=== PATIENT | female | born 1965 | race Caucasian/White ===

== ENCOUNTER 2017-03-25 14:20 | Emergency (ER) | payer BC ==
[~2017-03-25] VITALS: Ht 180.3 cm; Wt 84.1 kg
[~2017-03-25 14:20] MED LIST: AMBIEN 10MG10 MG PO; CARAFATE 1GM1 G PO; NORCO 325 MG-51 TAB PO; PRILOSEC10 MG PO; PRISTIQ 50 MG T50 MG PO; TYLENOL 500MG500 MG PO; ZOFRAN 4MG T4 MG/TAB PO; ZOFRAN ODT4 MG PO
[2017-03-25 14:28] VITALS: TEMP 98.6
[2017-03-25 15:31] LABS: BASO % 0.3 % (0.0-2.0); EOS # 0.1 (0.0-0.7); EOS % 1.1 % (0-4.0); GRAN # 4.1 (1.4-6.5); GRAN % 61.4 % (42.2-75.2); HEMATOCRIT 42.6 % (37.0-47.0); HEMOGLOBIN 14.4 g/dl (12.5-16.0); LYMPH % 30.5 % (20.0-51.0); MEAN CELL VOLUME 95 fl (80.0-100.0); MEAN CORPUSCULAR HEMOGLOBIN 32 pg (27.0-31.0); MEAN CORPUSCULAR HGB CONC 34 g/dl (33.0-37.0); MEAN PLATELET VOLUME 9.8 fl (7.4-10.4); MONO # 0.4 (0.1-0.6); MONO % 6.5 % (1.7-9.3); PLATELET COUNT 250 K/mm3 (130-400); REDCELL DISTRIBUTION WIDTH-CV 11.7 % (11.5-14.5); WHITE BLOOD COUNT 6.6 K/mm3 (4.8-10.8)
[2017-03-25] MEDS ORDERED: NORCO 325 MG-101 TAB PO (15:37)
[2017-03-25] MEDS ORDERED: VYVANSE50 MG PO (15:37)
[2017-03-25] MEDS ORDERED: AMBIEN CR 12.12.5 MG PO (15:38)
[2017-03-25] MEDS ORDERED: PRISTIQ100 MG PO (15:38)
[2017-03-25 15:45] LABS: ADJUSTED CALCIUM 8.8 mg/dL (8.4-10.2); BILIRUBIN,TOTAL 0.4 mg/dL (0.0-1.0); CALCIUM 8.8 mg/dL (8.4-10.2); CREATININE, serum 0.54 mg/dL (0.52-1.25); POTASSIUM 3.9 mmol/L (3.4-5.0); TOTAL PROTEIN 6.9 gm/dL (6.4-8.2)
[2017-03-25] MEDS ORDERED: CARAFATE 1GM1 G PO (17:07)
[2017-03-25] MEDS ORDERED: NORCO 325 MG-51 TAB PO (17:07)
[2017-03-25] MEDS ORDERED: ZOFRAN ODT4 MG PO (17:07)
[2017-03-25 17:30] VITALS: BP 147/92; PULSE 96
== END 2017-03-25 17:50 | disposition home or self-care (01) ==
LOC: COL.ER 14:20
PROVIDERS: Emergency Medicine
DX: R10.13 Epigastric pain (principal); R11.2 Nausea with vomiting, unspecified; K21.9 Gastro-esophageal reflux disease without esophagitis; K27.9 Peptic ulcer, site unspecified, unspecified as acute or chronic, without hemorrhage or perforation; F32.9 Major depressive disorder, single episode, unspecified; Z98.890 Other specified postprocedural states
CPT/HCPCS: C9113; J1200; J2270; J2405; J7030

== ENCOUNTER 2017-03-26 11:27 | Day surgery (SDC) | payer BC ==
[~2017-03-26] VITALS: Ht 180.3 cm; Wt 86.5 kg
[~2017-03-26 11:27] MED LIST changes: +AMBIEN CR 12.12.5 MG PO; +NORCO 325 MG-101 TAB PO; +PRISTIQ100 MG PO; +VYVANSE50 MG PO
[2017-03-26 12:32] VITALS: BP 152/94; PULSE 84; TEMP 97.7
[2017-03-26 13:20] VITALS: BP 143/94; PULSE 83; TEMP 97.8
[2017-03-26 13:30] VITALS: BP 129/80; PULSE 76
[2017-03-26 13:45] VITALS: BP 123/86; PULSE 70
[2017-03-26 14:00] VITALS: BP 130/79; PULSE 74
== END 2017-03-26 16:42 | disposition home or self-care (01) ==
LOC: SDCO 11:27
DX: K29.70 Gastritis, unspecified, without bleeding (principal); K21.9 Gastro-esophageal reflux disease without esophagitis; K30 Functional dyspepsia; Z87.11 Personal history of peptic ulcer disease
CPT/HCPCS: J2250; J2405; J3010; J7030

== ENCOUNTER → 2017-03-29 | Outpatient (CLI) | payer BC | LOC: COL.RAD 08:32 | DX: N20.0 Calculus of kidney (principal); N13.5 Crossing vessel and stricture of ureter without hydronephrosis; N85.2 Hypertrophy of uterus; D25.9 Leiomyoma of uterus, unspecified | CPT/HCPCS: Q9967 ==